=== PATIENT | male | born 1950 | race Caucasian/White ===

== ENCOUNTER 2022-01-03 00:39 | Day surgery (SDC) | payer OTHER, SELFPAY ==
--- NOTE | 2021-12-31 09:56 | PC.NURSE ---
Report to the Outpatient Waiting Room, entrance under the green pavilion located off [facility], at time _0600 on date _01/03/22 . OR Time: __30 . - You and your visitor will be asked a series of questions to screen for COVID 19 for your protection. - Only one visitor is allowed at this time. - The patient visitor is requested to leave or wait in car when not with patient. - A mask is required within the hospital. Patients may have clear liquids (water, carbonated beverages, clear teas, apple juice) until 3 hours prior to surgery with a maximum of 20 ounces. - No food from midnight until time of surgery - Infants may have breast milk until 4 hours before surgery, infant formula 6 hours prior to surgery. - Children will be allowed to drink immediately following surgery. If applicable, please bring a bottle or sippy cup to assist with drinking. Juice, water, soda, and popsicles are readily available. For infants on formula, please bring formula the day of surgery. Pacifiers are allowed. Take the following medications with a SIP of water the morning of surgery: _NONE Medications to discontinue per physician ____PT STATES STOP ASPIRIN AND ALL VIT, AND SUPP 10 DAYS PRE OP PER DR MEDINA Date to take last dose___12/22/21 __PT STATES WAS LAST DOSE Please no make-up, nail czech, hairspray, perfume, deodorant, or body powder the day of surgery. No jewelry (including any body piercings) or valuables the day of surgery, leave them at home. Please take a shower or bath the night before, or the morning of, surgery with an antibacterial soap. Wear comfortable, loose fitting clothing. Children are encouraged to wear pajamas. - Jewelry must be removed prior to entering the operating room. Rings and piercings that are not removed may be cut off. - The hospital will not accept responsibility for valuables. - Please leave all valuables, including medications, at home the day of surgery. If you are going home after surgery, a licensed dinkey driver must drive you home. - NO public transportation without another adult. - We recommend that an adult stay with you for 24 hours following discharge. - We also recommend that you do not drive, make important decision, drink alcoholic beverages, or take any drugs that were not prescribed by your health care provider for at least 24 hours after your discharge time. For Pediatric surgeries, we recommend two adults accompany the child home (only one inside the building at this time). Follow any additional instructions given to you from your surgeon. If you or anyone in your household have experienced Covid symptoms in the past week, please notify your surgeon or the nurse liaison at the phone number below for possible testing. Telephone instructions given to __PATIENT and asked if any additional questions and then verbalized understanding. Patient advised to call surgeon office or pre surgery nurse liaison [phone] if any additional questions.
[2021-12-31 10:05] VITALS: BMI 35.3
--- NOTE | 2022-01-02 13:10 | P.PNAN_ITS ---
Anes - Initial Pre Proc Eval Procedure: Operation Date: 01/03/22 07:30 Proposed Procedures p Left L4-5, L5-S1 Far Lateral Foraminotomy, Microscopic Lumbar Discectomy - Deven Dunn MD Date/Time: 01/02/22 13:10 Surgeon: Deven Dunn MD Pre Op Diagnosis: foraminal stenosis lumbar spine, lumbar disc herni Patient Data Age: 71 Gender: M Height: 1.88 m Weight: 124.8 kg Allergies Allergy/AdvReac Type Severity Reaction Status Date / Time Penicillins Allergy Severe Hives AND Verified 01/03/22 06:20 THROAT SWELLING adhesive AdvReac Intermediate Blister Verified 01/03/22 06:20 celecoxib [From Celebrex] AdvReac Mild Diarrhea Verified 01/03/22 06:20 Home Medications Medication Instructions Recorded Confirmed Type ascorbic acid (vitamin C) 500 mg 500 mg PO DAILY 12/31/21 01/03/22 History tablet aspirin 81 mg tablet,delayed 81 mg PO DAILY 12/31/21 01/03/22 History release (Adult Low Dose Aspirin) cholecalciferol (vitamin D3) 25 25 mcg PO DAILY 12/31/21 01/03/22 History mcg (1,000 unit) tablet krill 1,000 mg-omega-3 170 mg-dha 2 cap PO DAILY 12/31/21 01/03/22 History 50 mg-epa 80 [id number] capsule (krill oil) Patient hx anesthesia problems: none Family hx anesthesia problems: none Results Review: All pre-operative results and documents have been reviewed as part of the pre- operative evaluation. [facility]LY [facility] Past Medical History Medical History (Updated 01/02/22 @ 13:11 by Rudi Gan DO) MANFRED (obstructive sleep apnea) CPAP Surgical History Surgical History (Updated 01/02/22 @ 13:11 by Rudi Gan DO) History of total knee replacement b/l Social History Social History Smoking status: Never smoker Living arrangements: with family Spiritual care concerns: No Anes - Eval Final PreProcedure Day of Procedure 01/02/22 13:10 Patient weight: obese Heart: regular rate and rhythm Lungs: clear to auscultation Airway: Mallampati scale class II Neurological: alert and oriented Last oral intake: >/= 8 hours ASA classification: III Emergent: no Anesthetic plan: proceed Anesthesia type and monitoring: general ETT and standard monitoring Results Review: All pre-operative results and documents have been reviewed as part of the pre- operative evaluation. Informed Consent: The patient's anesthetic plan and its attendant risks and benefits were discussed with the patient/family/POA. Questions were solicited and answers provided to the satisfaction of the patient/family/POA.
[2022-01-03] VITALS (10 sets, daily range): BP systolic 116–157; BP diastolic 70–86; PULSE 51–88; RESP 12–16; TEMP 36.1–36.5; O2SAT 96–100
--- NOTE | ~2022-01-03 | XR_ITS ---
EXAMINATION: XR fluoroscopy no charge DATE: 01/03/2022 09:40 INDICATION: Lumbar discectomy TECHNIQUE: Single lateral fluoroscopic image of the lower lumbar spine was obtained during procedure performed by Dr. Dunn. Radiologist was not present for the imaging or procedure. The amount of fl uoroscopy time used during this procedure was 0.1 minutes. COMPARISON: None. FINDINGS: Image demonstrates soft tissue retractors and lap sponges likely at the operative bed in the soft tis sues posterior to L5. A metallic probe projects over the posterior aspect of L5. Mild disc height los s with vacuum phenomena at L4-L5. IMPRESSION: 1. Fluoroscopy utilized during neurosurgical procedure at the lower lumbar spine. See procedure note for further detail. Reviewed, dictated and finalized at location B. IMPRESSION: 1. Fluoroscopy utilized during neurosurgical procedure at the lower lumbar spin e. See procedure note for further detail.
[2022-01-03] MEDS: LACTATED RINGERS 1,000 ML 30 ML IV CONT ×2 (06:38→10:18)
[2022-01-03 06:52] LABS: Basophils Absolute Auto 0.1 K/mm3 (0.0-0.1); Basophils Percent Auto 0.7 % (0.2-1.2); Eosinophils Absolute Auto 0.4 K/mm3 (0-0.3); Eosinophils Percent Auto 5.9 % (0-4.4); Hemoglobin 14.2 g/dL (14.0-18.0); Immature Granulocyte Absolute 0.02 K/mm3 (0.00-0.031); Immature Granulocyte Percent A 0.3 % (0-0.5); Lymphocytes Absolute Auto 1.62 K/mm3 (0.9-3.2); Lymphocytes Percent Auto 23.9 % (18.3-44.2); Mean Corpuscular HGB Conc 33.8 g/dl (32-36); Mean Corpuscular Volume 91.7 fl (80-100); Mean Platelet Volume 9.9 fl (7.4-10.4); Monocytes Absolute Auto 0.5 K/mm3 (0.1-0.6); Monocytes Percent Auto 7.2 % (2.6-8.5); Neutrophils Absolute Auto 4.2 K/mm3 (1.3-6.7); Platelet Count Result 214 k/mm3 (150-375); Red Blood Count 4.58 M/mm3 (4.6-6.20); Red Cell Distribution Width 12.8 % (11.5-14.5); White Blood Count 6.8 K/mm3 (4.5-10.0)
--- NOTE | 2022-01-03 07:32 | PM.IMHP ---
H&P: HPI History of Present Illness Date/Time: 01/03/22 07:32 Chief Complaint: Back and left leg pain Narrative: Vega is a 71-year-old gentleman with left lower extremity pain related to foraminal stenosis and herniated nucleus pulposus at L4-5 and L5-S1 who presents for far lateral foraminotomy and microdiskectomy at those levels. He has not changed since we last saw him. He is not having any new bowel or bladder or other constitutional problems. Review of Systems Review of Systems: Patient denies shortness of breath, cough, fever, chills, nausea, vomiting, chest pain. PMFSH Past Medical History Medical History MANFRED (obstructive sleep apnea) CPAP Surgical History Surgical History History of total knee replacement b/l Social History Social History Smoking status: Never smoker Living arrangements: with family Spiritual care concerns: No Meds Home Medications and Allergies Home Medications Medication Instructions Recorded Confirmed Type ascorbic acid (vitamin C) 500 mg 500 mg PO DAILY 12/31/21 01/03/22 History tablet aspirin 81 mg tablet,delayed 81 mg PO DAILY 12/31/21 01/03/22 History release (Adult Low Dose Aspirin) cholecalciferol (vitamin D3) 25 25 mcg PO DAILY 12/31/21 01/03/22 History mcg (1,000 unit) tablet krill 1,000 mg-omega-3 170 mg-dha 2 cap PO DAILY 12/31/21 01/03/22 History 50 mg-epa 80 [id number] capsule (krill oil) Allergies Allergy/AdvReac Type Severity Reaction Status Date / Time Penicillins Allergy Severe Hives AND Verified 01/03/22 06:20 THROAT SWELLING adhesive AdvReac Intermediate Blister Verified 01/03/22 06:20 celecoxib [From Celebrex] AdvReac Mild Diarrhea Verified 01/03/22 06:20 Vital Signs Vital Signs - 24 hr 01/03/22 06:12 Temperature 97.7 F Pulse Rate 63 Respiratory Rate 16 Blood Pressure 157/70 H Pulse Oximetry 100 Oxygen Delivery Room Air Exam Narrative: Patient is normally white male supine on the hospital bed in no acute distress. He is awake, alert, oriented x3 with good fund of knowledge recall events and fluent speech. His face is symmetrical. His tongue is midline. His pupils are equal and reactive to light. Strength is normal in bilateral lower extremities to direct confrontation Sensation is intact to light touch throughout the lower extremities Regular rate and rhythm Clear to auscultation H&P: Results Labs Labs: Short CBC 01/03/22 Range/Units 06:17 WBC 6.8 (4.5-10.0) K/mm3 Hgb 14.2 (14.0-18.0) g/dL Hct 42.0 (42.0-52.0) % Plt Count 214 (150-375) k/mm3 Assessment and Plan Assessment and plan (1) Foraminal stenosis of lumbar region: Code(s): M48.061 - Spinal stenosis, lumbar region without neurogenic claudication Status: Acute (2) Lumbar disc herniation: Code(s): M51.26 - Other intervertebral disc displacement, lumbar region Status: Acute Plan Vega is a 71-year-old gentleman with left lower extremity pain related to the above pathology presents for decompression from a posterior approach. This will be by way of left L4-5 and L5-S1 far lateral foraminotomies a micro diskectomies. I described to him again that operation, its risks, potential benefits, the operative and postoperative course in detail answered all his questions personally. He indicates understanding and elects to proceed with that operation.
--- NOTE | 2022-01-03 07:35 | WPDHPUPDATE1 ---
History and Physical Update Update Date/Time: 01/03/22 07:35 History and Physical has been reviewed, including an updated exam of the patient. There are NO changes in the patient's condition. Risks, benefits, and alternatives have been discussed and questions answered. Patient agrees to proceed with procedure.
[2022-01-03] MEDS: ceFAZolin 3 GM/D5W 100 ML 100 ML IVPB (07:41)
[2022-01-03] MEDS: LIDOCAINE/EPINEPHRINE 0.5%/1:200,000 50 ML VIAL 20 ML INFILTRATE (09:39)
--- NOTE | 2022-01-03 09:42 | P.OP_ITS ---
Procedure Note - Detailed Date of Procedure 01/03/22 Pre-op Diagnosis foraminal stenosis lumbar spine, lumbar disc herni Post-op Diagnosis Same Procedure Performed Left L4-5 and L5-S1 far lateral foraminotomy and microdiskectomy Surgeon Deven Dunn MD Sustainability Executive Director clare Tiwari Vega is a 71-year-old gentleman with back and left lower extremity pain related to the above pathology presents for decompression. Findings Foraminal stenosis and herniated nucleus pulposus Description of Procedure Mr. Burgess was brought to the operating room in the supine position, was sedated, intubated and placed under general anesthesia in routine fashion. He was then turned into the prone position on a Mac frame. The area of operation on his back was examined, marked for incision, prepped and draped in routine sterile fashion. Incision was marked over the L4 through S1 spinous processes in the midline. This area was injected with 0.5% lidocaine with [id number] epinephrine. Intravenous antibiotics given prior to incision. Incision was made with a 10 blade scalpel down to the lumbodorsal fascia. A subperiosteal dissection of the muscle soft tissue away from the spinous process and lamina at L4 through S1 on the left was performed with a subperiosteal elevator and Bovie cautery. A verifying x-rays obtained to verify the level of operation. At the L4-5 and L5-S1 levels foraminotomy is and microdiskectomies were performed identically at each level. This was done by using a Midas Justin drill to resect the lateral pars and facet to soft contents of the foramen was encountered. Under microscopy the yellow ligament was lifted and removed piecemeal using Kerrison punches. This exposed the nerve root below which was reflected superiorly. Combination of instruments including curved curettes and Vj curette, a Tong rongeur, pituitary rongeur, Midas Justin drill and Kerrison punches were used to remove hard and soft disc herniation from beneath the nerve at each level. This was done until a dental instrument could be placed proximally and distally above below the nerve root to confirm lack of compression. The incision was then copiously irrigated with bacitracin irrigation all bleed ing was stopped with bipolar and Bovie cautery and Surgiflo. The wound was then closed in layered fashion with 2-0 Vicryl interrupted sutures in the lumbodorsal fascia and Bertrand's layer. 3-0 Vicryl. Interrupted sutures were placed in the dermis and the skin was closed with a running 4-0 Monocryl subcuticular stitch and dressed with Dermabond and Telfa and Tegaderm dressing. The patient was allowed to wake up in the operating room and was taken to recovery room stable condition. There were no immediate complications of this operation. All counts were reported correct at the end of the case. Blood loss was 25 cc. The patient was neurologically at his baseline postoperatively. Implants None Estimated Blood Loss 25 IV Fluids 1,000 Drains No Complications None Condition Stable Disposition PACU
[2022-01-03] MEDS: fentaNYL CITRATE INJ (*CRX) 100 MCG/2 ML VIAL 25 MCG IV PUSH (10:30)
[2022-01-03] MEDS: oxyCODONE HCL (*CRX) 5 MG TAB IR PO (11:54)
== END 2022-01-03 13:05 | disposition home or self-care (01) ==
PROVIDERS: PCP Family Medicine; Visit Provider Neurological Surgery
PROC: (CPT 63030; principal; 2022-01-03 07:30)
DX: M48.061 Spinal stenosis, lumbar region without neurogenic claudication (principal); M51.26 Other intervertebral disc displacement, lumbar region; G47.33 Obstructive sleep apnea (adult) (pediatric); Z79.82 Long term (current) use of aspirin; Z96.653 Presence of artificial knee joint, bilateral; E66.9 Obesity, unspecified; Z68.36 Body mass index [BMI] 36.0-36.9, adult; Z91.048 Other nonmedicinal substance allergy status; Z88.0 Allergy status to penicillin
CPT/HCPCS: 63047; 63048; 36415; 85025; 86850; 86900; 86901; 99199; A9270; J0690; J1100; J1170; J2250; J2405; J2704; J2710; J3010; J3370; J7120